=== PATIENT | female | born 1970 | race African-American/Black ===

== ENCOUNTER 2022-01-12 00:19 | Emergency (ER) | payer OTHER ==
[~2022-01-12] VITALS: Ht 157.5 cm; Wt 112.0 kg
[2022-01-12] MEDS ORDERED: ONDANSETRON HCL 4MG/2ML INJ IV STA (02:37)
[2022-01-12] MEDS ORDERED: MORPHINE SULFATE 4 MG/ML CPJ (NOT FOR IM USE) IV STA (02:37)
[2022-01-12] MEDS ORDERED: NITROGLYCERIN 0.4MG TABLET SL SL PRN (02:45)
[2022-01-12 02:59] LABS: EOSINOPHILS % 1.1 % (0.0-5.0); HEMATOCRIT. 40.3 % (36.0-48.0); HEMOGLOBIN. 13.3 g/dL (12.0-16.0); LYMPHOCYTES % 33.2 % (20.0-50.0); MEAN CORPUSCULAR HEMOGLOBIN 30.9 pg (28.0-32.0); MEAN CORPUSCULAR VOLUME 93.3 fL (81.0-99.0); MEAN PLATELET VOLUME 9.9 fl (7.4-10.4); MONOCYTES % 6.4 % (2.0-8.0); NEUTROPHILS % 58.3 % (40.0-76.0); PLATELET 309 x1000/uL (130-400); RED BLOOD CELL COUNT 4.32 mill/uL (4.2-5.4); RED CELL DISTRIBUTION WIDTH 17.3 % (11.6-14.6)
[2022-01-12 03:07] LABS: CHLORIDE 110 mEq/L (98-107)
[2022-01-12] MEDS ORDERED: CEFTRIAXONE 1 G PREMIX 50 ML IV ONE (05:45)
[2022-01-12] MEDS ORDERED: AZITHROMYCIN 500MG/250ML 250 ML IV ONE (05:45)
[2022-01-12] MEDS ORDERED: ENALAPRIL 2.5MG/2ML VIAL 2ML IV ONE (05:45)
[2022-01-12] MEDS ORDERED: METOCLOPRAMIDE HCL 10MG/2ML VIAL IV ONE (08:30)
[2022-01-12] MEDS ORDERED: MORPHINE SULFATE 4 MG/ML CPJ (NOT FOR IM USE) IV ONE (08:30)
[2022-01-12] MEDS ORDERED: DIPHENHYDRAMINE 50MG/ML VIAL IV ONE (08:30)
[2022-01-12] MEDS ORDERED: HYDRALAZINE 20MG/ML VIAL IV ONE (12:00)
[2022-01-12 13:24] VITALS: BP 171/60
[2022-01-12] MEDS ORDERED: ONDANSETRON HCL 4MG/2ML INJ IV PRN (13:30)
[2022-01-12] MEDS ORDERED: IPRATROPIUM/ALBUTEROL 0.5-3(2.5)MG/3ML NEB HHN PRN (13:30)
[2022-01-12] MEDS ORDERED: AMLODIPINE 5MG TABLET PO ONE (14:15)
[2022-01-12 16:15] LABS: *AMPHETAMINES SCREEN URINE NEGATIVE (NEGATIVE); *BARBITURATES SCREEN URINE NEGATIVE (NEGATIVE); *BENZODIAZEPINES SCREEN URINE NEGATIVE (NEGATIVE); *COCAINE SCREEN URINE NEGATIVE (NEGATIVE)
[2022-01-12 16:16] LABS: CANNABINOID URINE SCREEN PRESUMTIVE POSITIVE (NEGATIVE); METHADONE URINE SCREEN NEGATIVE (NEGATIVE); OPIATES URINE SCREEN PRESUMTIVE POSITIVE (NEGATIVE); PHENCYCLIDINE URINE SCREEN NEGATIVE (NEGATIVE)
[2022-01-12] MEDS ORDERED: AMLODIPINE 5MG TABLET PO SCH (21:00)
[2022-01-13] MEDS ORDERED: ASPIRIN 81MG TABLET PO SCH (09:00)
== END 2022-01-12 15:04 | disposition left against medical advice (07) ==
LOC: ER 00:57 → ENRESERV 14:41 → CANRESERV 14:41 → ER 15:04 → CANBEDREQ 16:30
DX: J18.9 Pneumonia, unspecified organism (principal); I10 Essential (primary) hypertension; Z20.822 Contact with and (suspected) exposure to COVID-19; Z98.890 Other specified postprocedural states; Z88.6 Allergy status to analgesic agent; Z88.5 Allergy status to narcotic agent
CPT/HCPCS: 36415; 71045; 80053; 80305; 83605; 83880; 84145; 84484; 85025; 85379; 87040; 87426; 93005; 96365; 96366; 96368; 96375; 96376; 99285; J0360; J0456; J0696; J1200; J2270; J2405; J2765; J3490